=== PATIENT | male | born 1985 | race Caucasian/White ===

== ENCOUNTER 2019-07-05 09:35 | Emergency (ER) | payer OTHER ==
[~2019-07-05] VITALS: Ht 172.7 cm; Wt 81.7 kg
[2019-07-05] MEDS ORDERED: ACYCLOVIR 200200 MG PO (10:15)
[2019-07-05 10:23] LABS: ABSOLUTE EOSINOPHILS 0.2 thou/uL (0.0-0.7); ABSOLUTE LYMPHOCYTES 1.7 thou/uL (0.8-5.3); ABSOLUTE MONOCYTES 0.3 thou/uL (0.0-1.2); ABSOLUTE NEUTROPHILS 3.2 thou/uL (1.6-8.1); BASOPHILS 0.7 %; EOSINOPHILS 4.2 %; HEMATOCRIT 47.3 % (42.0-52.0); HEMOGLOBIN 15.9 gm/dL (14.0-18.0); LYMPHOCYTES 30.7 %; MCH 29.3 pg (26.0-34.0); MCHC 33.5 g/dL (28.0-37.0); MCV 87.3 fL (80.0-100.0); MONOCYTES 5.9 %; MPV 8.2 fl. (7.2-11.1); NUCLEATED RBCS 0 /100WBC; PLATELET COUNT* 265 thou/uL (150-400); POLYS 58.5 %; RBC 5.43 mil/uL (4.50-6.00); RDW-CV 12.6 % (10.5-14.5); WBC 5.5 thou/uL (4.0-11.0)
[2019-07-05 10:32] LABS: CALCIUM 9.3 mg/dL (8.5-10.1); CREATININE 1.1 mg/dL (0.6-1.3); POTASSIUM 3.8 mmol/L (3.5-5.1)
[2019-07-05 10:37] LABS: ALBUMIN 4.4 g/dL (3.4-5.0); TOTAL BILIRUBIN 0.3 mg/dL (<0.1-1.0); TOTAL PROTEIN 8.6 g/dL (6.4-8.2)
[2019-07-05] MEDS ORDERED: MEDROLDOSEPACK PO ×2 (12:02→12:04)
[2019-07-05] MEDS ORDERED: AMOXICILLIN500 M1 PO ×2 (12:02→12:04)
[2019-07-05 12:20] VITALS: BP 161/108
== END 2019-07-05 12:21 | disposition home or self-care (01) ==
LOC: M.ERS 09:35
PROVIDERS: Personal Emergency Response Attendant
DX: J68.0 Bronchitis and pneumonitis due to chemicals, gases, fumes and vapors (principal); Z20.828 Contact with and (suspected) exposure to other viral communicable diseases